=== PATIENT | female | born 1935 | race Caucasian/White ===

== ENCOUNTER → 2018-08-03 | Outpatient (CLI) | payer MEDICARE, OTHER ==
[~2018-08-03] MED LIST: ALBU90OI INH; ASPI325 PO; ATOR10; ATOR10 PO; AZIT250 PO; CALCA500CH; CEPH500 PO; DIPH50 PO; Ex-Lax15 MG PO; FAMO20 PO; GLUCOSAMINE &1 EACH; HYDACE5 PO; LEVSOD125 PO; LEVSOD88 PO; MECL25 PO; METF500 PO; METO25ER; RXPROM25 PO; VITAMIN D31000 UNIT
[2018-08-05 13:54] LABS: Stool Occult Bld Immuno 1 Negative (NEGATIVE); Stool Occult Bld Immuno 2 Negative (NEGATIVE)
== END | disposition home or self-care (01) ==
LOC: LAB SHORT 10:00 → LAB 10:00 → LAB FUT 06-12 13:35
PROVIDERS: Internal Medicine Gastroenterology
DX: K57.30 Diverticulosis of large intestine without perforation or abscess without bleeding (principal); Z86.010 Personal history of colon polyps; Z80.0 Family history of malignant neoplasm of digestive organs
CPT/HCPCS: G0328

== ENCOUNTER → 2021-07-20 | Outpatient (CLI) | payer MEDICARE, OTHER ==
[~2021-07-20] MED LIST changes: +CITRATE OF MAG296 M4 PO; +CONSTULOSE10 GM/155 PO; +DOCU100 PO; +SENNA LAXATIVE8.6 MG PO
[2021-07-20 18:40] LABS: Alanine Aminotransfer (ALT/SGP 22 U/L (12-78); Albumin, Blood 3.9 g/dL (3.4-5.0); Albumin/Globulin Ratio 1.3 (0.8-1.8); Alk Phos 62 U/L (50-136); Anion Gap 6 mmol/L (6-16); Aspartate Aminotrans (AST/SGOT 16 U/L (12-37); Bilirubin, Total 0.3 mg/dL (0.1-1.0); Blood Urea Nitrogen 16 mg/dL (8-24); Bun/Creatinine Ratio 29.4 (12.0-20.0); CO2, Blood 25 mmol/L (21-32); Calcium, Blood 8.8 mg/dL (8.5-10.1); Chloride, Blood 109 mmol/L (98-108); Creatinine, Blood 0.55 mg/dL (0.40-1.00); Globulin, Blood 3.1 g/dL (2.2-4.0); Glomerular Filtration Rate >60 (60-); Glucose, Blood 117 mg/dL (70-99); Sodium, Blood 140 mmol/L (136-145)
== END | disposition home or self-care (01) ==
LOC: LAB 14:00 → LAB SHORT 14:00
PROVIDERS: Family Medicine
DX: E11.9 Type 2 diabetes mellitus without complications (principal)
CPT/HCPCS: 80053; 83036; 84443

== ENCOUNTER → 2021-10-13 | Outpatient (CLI) | payer MEDICARE, OTHER ==
[~2021-10-13] MED LIST changes: -CITRATE OF MAG296 M4 PO; -CONSTULOSE10 GM/155 PO; -DOCU100 PO; -SENNA LAXATIVE8.6 MG PO
== END | disposition home or self-care (01) ==
LOC: LAB 13:15 → LAB SHORT 13:15
DX: R10.9 Unspecified abdominal pain (principal)
CPT/HCPCS: 87086

== ENCOUNTER → 2021-11-21 | Outpatient (CLI) | payer MEDICARE, OTHER ==
[~2021-11-21] MED LIST changes: +CITRATE OF MAG296 M4 PO; +CONSTULOSE10 GM/155 PO; +DOCU100 PO; +SENNA LAXATIVE8.6 MG PO
== END ==
LOC: LAB SHORT 16:02 → LAB 16:02
DX: R30.0 Dysuria (principal)
CPT/HCPCS: 87086